=== PATIENT | male | born 1940 | race Caucasian/White ===

== ENCOUNTER 2018-06-05 05:13 | Inpatient (IN) | payer MEDICARE ==
[2018-06-05] MEDS ORDERED: NITROGLYCERIN-D5W PMX 50 MG in DEXTROSE/WATER 1 250ML.BAG IV STA (05:18)
--- NOTE | 2018-06-05 05:27 | ED ---
General Adult HPI - General Stated complaint: Hypertensive Trnsf From [facility] Time Seen by Provider: 06/05/18 05:17 - History of Present Illness Initial comments: Sravan is a 77-year-old male past medical history of hypertension for which she is on medications he cannot recall which. Patient reports that he usually lives in [place] but he has been visiting a friend in this area and has not had any of his medications for approximately week. During the night he became very short of breath and was taken to an outside facility where he is found to be in flash pulmonary edema likely secondary to hypertensive emergency with a blood pressure of 225/126. Patient was treated at the outside hospital with IV nitro infusion, IV Lasix and positive pressure ventilation. Decision was made to transfer the patient to our facility for further evaluation. Upon arrival patient states that he is feeling much better, he only feels short of breath if he tries to lay down, he feels comfortable sitting up. He denies any chest pain or palpitations. - Related Data Allergies Allergy/AdvReac Type Severity Reaction Status Date / Time No Known Allergies Allergy Verified 06/05/18 05:44 Review of Systems ROS Statement: Those systems with pertinent positive or pertinent negative responses have been documented in the HPI. ROS Other: All systems not noted in ROS Statement are negative. Past Medical History Past Medical History: Hypertension General Exam - General Exam Comments Initial Comments: Physical Exam GENERAL: Patient is well-developed and well-nourished. Patient is nontoxic and well- hydrated and is in no distress. HENT: Normocephalic, Atraumatic. EYES: PERRL, EOMI PULMONARY: Unlabored respirations. No audible rales rhonchi or wheezing was noted. CARDIOVASCULAR: There is a regular rate and rhythm without any murmurs gallops or rubs. ABDOMEN: Soft and nontender with normal bowel sounds. SKIN: Skin is clear with no lesions or rashes and otherwise unremarkable. : Deferred NEUROLOGIC: Patient is alert and oriented x3. Moving all extremities spontaneously MUSCULOSKELETAL: Normal extremities with adequate strength and full range of motion. No lower extremity swelling or edema. No calf tenderness. PSYCHIATRIC: Normal psychiatric evaluation. Limitations: no limitations Course Vital Signs 06/05/18 05:21 Temperature 98.1 F Pulse Rate 80 Respiratory 20 Rate Blood Pressure 161/97 O2 Sat by Pulse 99 Oximetry EKG Findings - EKG Comments: EKG Findings:: EKG was obtained at 30 9 AM, rate is 79 rhythm is sinus there is normal axis and normal intervals, IA 148, QRS 12, QTc 410 there are no acute ST elevations or depressions or evidence of acute ischemia or infarction Medical Decision Making - Medical Decision Making care was discussed with the transferring physician Is a 77-year-old male who has been noncompliant with his home oral antihypertensives he presented to the outside facility and flash pulmonary edema, physical exam revealed JVD, crackles in bilateral lungs, oxygen saturation in the high 80s to low 90s, a blood pressure of 225/126 Patient's EKG at that facility revealed trigeminy, his labs did reveal hypomagnesemia and hypokalemia, potassium was replaced orally, magnesium was replaced the IV Patient was appropriately treated for hypertensive emergency with IV nitro, IV Lasix and positive and pressure ventilation. He was transferred to our facility with IV nitro infusing in on CPAP ventilation. At arrival the patient is asymptomatic, blood pressure is improved to 161/77 while on 10 g of nitro, patient oxygen saturation is 98% on 3 L nasal cannula and he is in no respiratory distress Disposition Clinical Impression: Hypertensive emergency, Flash pulmonary edema, Hypoxia, Hypomagnesemia, Hypokalemia Disposition: ADMITTED IP TO THIS HOSP Condition: Stable Is patient prescribed a controlled substance at d/c from ED?: No Referrals: None,Stated [Primary Care Provider] - 1-2 days
[2018-06-05 06:13] LABS: ALT 14 U/L (21-72); AST 18 U/L (17-59); Alkaline Phosphatase 61 U/L (38-126); Anion Gap 9 mmol/L; Blood Urea Nitrogen 13 mg/dL (9-20); Calcium 9.5 mg/dL (8.4-10.2); Carbon Dioxide 28 mmol/L (22-30); Chloride 105 mmol/L (98-107); Glucose 115 mg/dL (74-99); Magnesium 2.1 mg/dL (1.6-2.3); Potassium 4.2 mmol/L (3.5-5.1); Sodium 142 mmol/L (137-145); Total Bilirubin 0.8 mg/dL (0.2-1.3); Total Protein 6.6 g/dL (6.3-8.2)
[2018-06-05 06:17] LABS: Prothrombin Time 11.1 sec (9.0-12.0)
[2018-06-05 06:18] LABS: Basophils # (A) 0.1 k/uL (0-0.2); Basophils % (A) 1 %; Eosinophils # (A) 0.4 k/uL (0-0.7); Eosinophils % (A) 3 %; HCT 43.6 % (39.0-53.0); HGB 14.3 gm/dL (13.0-17.5); Lymphocytes # (A) 1.5 k/uL (1.0-4.8); Lymphocytes % (A) 14 %; MCH 29.5 pg (25.0-35.0); MCHC 32.8 g/dL (31.0-37.0); Mean Platelet Volume 7.6; Monocytes # (A) 0.6 k/uL (0-1.0); Monocytes % (A) 5 %; Neutrophils # (A) 7.9 k/uL (1.3-7.7); Neutrophils % (A) 75 %; Platelet Count 230 k/uL (150-450); RBC 4.84 m/uL (4.30-5.90); RDW 14.7 % (11.5-15.5); WBC 10.5 k/uL (3.8-10.6)
--- NOTE | 2018-06-05 06:38 | P.HPIM ---
History of Present Illness H&P Date: 06/05/18 Chief Complaint: SOA/ elevated BP transferred from [facility] The patient is a 77-year-old male past medical history of hypertension, ovg-nxaapcb-ptkakjwjd dependent diabetes, hyperlipidemia and osteoarthritis who was transferred here from [facility] earlier this morning after he presented there complaining of progressive shortness of breath over the last week. P carla reports that he usually lives in [place] but he has been visiting a friend in this area and has not had any of his medications for approximately week. During the night he became increasingly short of breath and was unable to lay flat he also complained of moderate nonradiating chest pressure feeling like 100 pounds in observation chest, blood pressure check at home was 182/121 after which she presented to an outside facility. Workup at [facility] included a chest x-ray that was consistent with mild cardiomegaly bilateral interstitial edema consistent with pulmonary edema and congestion. His proBNP was elevated at 3668, troponin was less than 0.03, magnesium was 1.2. potassium was 3.4. EKG showed sinus tachycardia without any suggestion of acute ischemia. the patient was found to be in flash pulmonary edema likely secondary to hypertensive emergency with a blood pressure of 225/126. Patient was treated at [facility] with IV nitro infusion, IV Lasix and positive pressure ventilation. Decision was made to transfer the patient to our facility for further evaluation. Upon arrival patient states that he is feeling much better, he only feels short of breath if he tries to lay down, he feels comfortable sitting up. He currently denies any chest pain or palpitations, he denies cough, subjective fevers chills or night sweats, denies lower extremity swelling. The patient is unable to recall most of his medications, denies any history of heart failure but reports that he has been on Lasix and losartan. He was recommended for admission for flash pulmonary edema and hypertensive emergency. Review of Systems Pertinent positives per HPI all other review of systems otherwise negative Past Medical History Past Medical History: Hypertension Medications and Allergies Allergies Allergy/AdvReac Type Severity Reaction Status Date / Time No Known Allergies Allergy Verified 06/05/18 05:44 Physical Exam Vitals: Vital Signs Temp Pulse Resp BP Pulse Ox 06/05/18 05:21 98.1 F 80 20 161/97 99 Intake and Output 06/04/18 06/04/18 06/05/18 14:59 22:59 06:59 Other: Weight 58.967 kg Constitutional: No acute distress, conversant, pleasant Eyes: Anicteric sclerae, moist conjunctiva, no lid-lag, PERRLA ENMT: NC/AT,Oropharynx clear, no erythema, exudates Neck:Supple, FROM, no masses, or JVD, No carotid bruits; No thyromegaly Lungs: Diminished with some bibasilar crackles, , Normal respiratory effort, no accessory muscle use currently on 4 L nasal cannula Cardiovascular: Regular rate and rhythm, No murmurs, gallops, or rubs no peripheral edema< positive JVD Abdominal: Soft Nontender, nom distended, no guarding, no rebound or rigidity, Normoactive bowel sounds No hepatomegaly, No splenomegaly, No palpable mass No abdominal wall hernia noted Skin: Normal temperature, tone, texture, turgor, No induration No subcutaneous nodules, No rash, lesions, No ulcers Extremities:No digital cyanosis No clubbing, Pedal pulses intact and symmetrical Radial pulses intact and symmetrical Normal gait and station, No calf tenderness Psychiatric: Alert and oriented to person, place and time, Appropriate affect Intact judgement Neuro: Muscles Strength 5/5 in all 4 extremities, Sensation to light touch grossly present throughout, Cranial nerves II-XII grossly intact. No focal sensory deficits Results CBC & Chem 7: 06/05/18 05:30 06/05/18 05:30 Assessment and Plan (1) Acute exacerbation of congestive heart failure Current Visit: Yes Status: Acute Code(s): I50.9 - HEART FAILURE, UNSPECIFIED SNOMED Code(s): 04563644 (2) Hypertensive emergency Current Visit: Yes Status: Acute Code(s): I16.1 - HYPERTENSIVE EMERGENCY SNOMED Code(s): 865155487348254 (3) Flash pulmonary edema Current Visit: Yes Status: Acute Code(s): J81.0 - ACUTE PULMONARY EDEMA SNOMED Code(s): 621792410 (4) Type 2 diabetes mellitus Current Visit: Yes Status: Acute Code(s): E11.9 - TYPE 2 DIABETES MELLITUS WITHOUT COMPLICATIONS SNOMED Code(s): 01755567 (5) Hyperlipidemia Current Visit: Yes Status: Acute Code(s): E78.5 - HYPERLIPIDEMIA, UNSPECIFIED SNOMED Code(s): 81502402 (6) Hypokalemia Current Visit: Yes Status: Acute Code(s): E87.6 - HYPOKALEMIA SNOMED Code (s): 48590914 (7) Hypomagnesemia Current Visit: Yes Status: Acute Code(s): E83.42 - HYPOMAGNESEMIA SNOMED Code(s): 379056953 Plan: The patient is admitted to the telemetry unit after being transferred from [facility], I anticipate a greater than 2 midnight stay as the patient is here with flash pulmonary edema, hypertensive emergency, likely acute CHF exacerbation. The patient was transferred here currently on nitro drip, her blood pressure still elevated, we'll continue Lasix 40 mg IV twice a day, restart losartan 50 mg by mouth daily, along with hydralazine, will plan to obtain a 2-D echocardiogram and consult cardiology for further recommendations. We will recheck x-ray, morning labs, recommended low-sodium diet and strict I's and O's with daily weights. Continue with supplemental oxygen and wean as tolerated. The patient is unable to recall his medications, will have nursing contact [facility] when they opened later today. We'll continue to follow clinical course CODE STATUS: Full code Discussed plan of care with patient and his partner Sophia Anticipated discharge 1-2 days Prophylaxis : SCDs heparin
[2018-06-05] MEDS ORDERED: hydrALAZINE HCL 25 MG TAB PO SCH (08:00)
--- NOTE | 2018-06-05 08:18 | XR ---
EXAMINATION TYPE: XR chest 2V DATE OF EXAM: 06/05/2018 COMPARISON: NONE HISTORY: Pulmonary edema, congestive heart failure TECHNIQUE: Frontal and lateral views of the chest are obtained. FINDINGS: Blunting of the left costophrenic angle is noted. There is no pneumothorax. Interstitium i s increased. Heart size is within normal limits. There are overlying cardiac leads. IMPRESSION: Left pleural effusion and associated atelectasis, there may be interstitial edema. Corre late to exclude pneumonia. Follow-up recommended.
[2018-06-05] MEDS ORDERED: LISINOPRIL 10 MG TAB PO SCH (09:00)
[2018-06-05] MEDS ORDERED: METOPROLOL TARTRATE 25 MG TAB PO SCH (09:00)
[2018-06-05] MEDS ORDERED: LOSARTAN 50 MG TAB PO SCH (09:00)
--- NOTE | 2018-06-05 09:22 | P.CRDCN ---
History of Present Illness Consult date: 06/05/18 Requesting physician: Tex Villanueva Consult reason: congestive heart failure Chief complaint: Shortness of breath History of present illness: This is a 77-year-old gentleman with history of diabetes, hypertension, hyperlipidemia, osteoarthritis, who lives in [facility], and was up visiting with a friend in the [facility] area. He states that he's been getting progressively more and more shortness of breath. According to the patient, any time he would try to lay flat he felt like there was 100 pound weight on his chest and he couldn't breathe. This has been going on for over a month in duration. Ultimately the patient presented to [facility], his blood pressure on presentation there was noted to be significantly elevated. According to the patient he does state that he likely missed taking his a blood pressure pills for approximately one week also. Blood pressure on arrival to [facility] was to 25/126, heart rate in the 60s, 90% O2 sat on room air he was given a dose of Lasix 20 mg IV push as well as a sublingual nitroglycerin, initiated on a nitroglycerin drip and transferred here to [facility]. His EKG which was performed at [facility] showed sinus tachycardia with occasional PVC. White blood cell count 11.7 hemoglobin 15.5, platelet count 243. Sodium 143, potassium 3.4, chloride 104, CO2 27, magnesium 1.2 and troponin 0.03. BNP level 3668. Chest x-ray performed on arrival here showed a left lateral effusion with associated atelectasis, interstitial edema. I pressure on arrival here 160/90 with a heart rate in the 80s, 99% on 4 L of oxygen. White blood cell count 10.5, hemoglobin 14.3, platelet count 2:30. Sod ium 142, potassium 4.2, BUN 13 and creatinine 0.8 magnesium 2.1. BNP level 4150 with a negative troponin. At the time of my examination this morning, patient feels well, still mildly short of breath but significantly improved from admission here. 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 History of Any Multi-Drug Resistant Organisms: None Reported Past Surgical History: Back Surgery Past Anesthesia/Blood Transfusion Reactions: No Reported Reaction Past Psychological History: No Psychological Hx Reported Smoking Status: Never smoker Past Alcohol Use History: None Reported Past Drug Use History: None Reported - Past Family History Father History Unknown: Yes Mother History Unknown: Yes Medications and Allergies Home Medications Medication Instructions Recorded Confirmed Type Atorvastatin [Lipitor] 10 mg PO HS 06/05/18 06/05/18 History Glimepiride [Amaryl] 4 mg PO BID 06/05/18 06/05/18 History Losartan Potassium 50 mg PO DAILY 06/05/18 06/05/18 History Meloxicam [Mobic] 7.5 mg PO BID 06/05/18 06/05/18 History cloNIDine HCL [Catapres] 0.2 mg PO DAILY 06/05/18 06/05/18 History metFORMIN HCL 1,000 mg PO BID 06/05/18 06/05/18 History Allergies Allergy/AdvReac Type Severity Reaction Status Date / Time No Known Allergies Allergy Verified 06/05/18 09:57 Physical Exam Vitals: Vital Signs Temp Pulse Pulse Resp BP BP Pulse Ox 06/05/18 07:40 98.2 F 89 16 161/97 99 06/05/18 07:20 98.2 F 80 18 178/92 06/05/18 06:28 82 20 170/88 96 06/05/18 06:00 88 20 164/90 96 06/05/18 05:21 98.1 F 80 20 161/97 99 Intake and Output 06/04/18 06/05/18 06/05/18 22:59 06:59 14:59 Output Total 350 Balance -350 Output: Urine 350 Other: Weight 58.967 kg 58.9 kg PHYSICAL EXAMINATION: GENERAL: 77-year-old gentleman in no acute distress at the time of my examination HEENT: Head is atraumatic, normocephalic. Pupils equal, round. Sclera anicteric. Conjunctiva are clear. Mucous membranes of the mouth are moist. Neck is supple. There is elevated jugular venous pressure. No carotid bruit is heard. HEART EXAMINATION: Heart S1, S2 normal. No murmur or gallop heard. CHEST EXAMINATION: Lungs reveal diminished air entry bilaterally, left greater than the right. ABDOMEN: Soft, nontender. Bowel sounds are heard. No organomegaly noted. EXTREMITIES: 2+ peripheral pulses with no evidence of peripheral edema and no calf tenderness noted. NEUROLOGIC patient is awake, alert and oriented 3 . . Results 06/05/18 05:30 06/05/18 05:30 Cardiac Enzymes 06/05/18 06/05/18 Range/Units 05:30 05:30 AST 18 (17-59) U/L Troponin I <0.012 (0.000-0.034) ng/mL Coagulation 06/05/18 Range/Units 05:30 PT 11.1 (9.0-12.0) sec APTT 25.0 (22.0-30.0) sec CBC 06/05/18 Range/Units 05:30 WBC 10.5 (3.8-10.6) k/uL RBC 4.84 (4.30-5.90) m/uL Hgb 14.3 (13.0-17.5) gm/dL Hct 43.6 (39.0-53.0) % Plt Count 230 (150-450) k/uL Comprehensive Metabolic Panel 06/05/18 Range/Units 05:30 Sodium 142 (137-145) mmol/L Potassium 4.2 (3.5-5.1) mmol/L Chloride 105 (98-107) mmol/L Carbon Dioxide 28 (22-30) mmol/L BUN 13 (9-20) mg/dL Creatinine 0.81 (0.66-1.25) mg/dL Glucose 115 H (74-99) mg/dL Calcium 9.5 (8.4-10.2) mg/dL AST 18 (17-59) U/L ALT 14 L (21-72) U/L Alkaline Phosphatase 61 (38-126) U/L Total Protein 6.6 (6.3-8.2) g/dL Albumin 4.0 (3.5-5.0) g/dL Current Medications Generic Name Dose Route Start Last Admin Trade Name Freq PRN Reason Stop Dose Admin Furosemide 40 mg 06/05/18 06:00 Lasix IV Q12H KEO Heparin Sodium (Porcine) 5,000 unit 06/05/18 09:00 Heparin SQ Q12HR KEO Hydralazine HCl 25 mg 06/05/18 08:00 Apresoline PO Q8HR [facility] Losartan Potassium 50 mg 06/05/18 09:00 Cozaar PO DAILY KEO Metoprolol Tartrate 25 mg 06/05/18 09:00 Lopressor PO BID KEO Intake and Output 06/04/18 06/05/18 06/05/18 22:59 06:59 14:59 Output Total 350 Balance -350 Output: Urine 350 Other: Weight 58.967 kg 58.9 kg Patient Weight 06/06/18 06:59 Weight 58.9 kg 06/05/18 05:30 06/05/18 05:30 EKG Interpretations (text) EKG shows a normal sinus rhythm with frequent PVCs, no acute changes noted Assessment and Plan Plan: Assessment and plan #1 congestive heart failure exacerbation, LV function unknown #2 hypertensive urgency #3 diabetes #4 hyperlipidemia #5 no prior history of smoking Plan We will continue patient on IV Lasix. Obtain echocardiogram with Doppler study. Change losartan to losartan hydrochlorothiazide increasing the dose to 100/12.5 daily. Increase hydralazine to 50 3 times a day. Increase dose of beta kelly. DNP note has been reviewed, I agree with a documented findings and plan of care. Patient was seen and examined.
[2018-06-05] MEDS: FUROSEMIDE 10 MG/ML 4 ML VIAL IV SCH ×2 (10:17→16:31)
[2018-06-05] MEDS: HEPARIN SODIUM,PORCINE 5,000 UNIT/ML 1 ML VIAL SQ SCH ×2 (10:35→20:02)
[2018-06-05 11:34] VITALS: BMI 23.0
[2018-06-05 11:35] LABS: Glucose,Whole Blood 162 mg/dL (75-99)
[2018-06-05 12:30] LABS: T4, Free (Free Thyroxine) 1.39 ng/dL (0.78-2.19)
--- NOTE | 2018-06-05 13:37 | ECHOF ---
Referral Reason:Heart Failure MEASUREMENTS -------- HEIGHT: 160.0 cm WEIGHT: 59.0 kg BP: 170/88 IVSd: 1.0 cm (0.6 - 1.1) LVIDd: 4.9 cm (3.9 - 5.3) LVPWd: 1.2 cm (0.6 - 1.1) IVSs: 1.4 cm LVIDs: 4.1 cm LVPWs: 1.3 cm LAESV Index (A-L): 30.98 ml/m Ao Diam: 3.6 cm (2.0 - 3.7) AV Cusp: 2.1 cm (1.5 - 2.6) LA Diam: 4.1 cm (2.7 - 3.8) MV EXCURSION: 15.965 mm (> 18.000) MV EF SLOPE: 61 mm/s (70 - 150) EPSS: 1.0 cm MV E Catalino: 0.95 m/s MV DecT: 187 ms MV A Catalino: 0.57 m/s MV E/A Ratio: 1.67 RAP: 5.00 mmHg RVSP: 9.20 mmHg FINDINGS -------- Sinus rhythm. This was a technically difficult study with suboptimal views. The left ventricular size is normal. There is borderline concentric left ventricular hypertrophy. There is severe global hypokinesis of LV . Overall left ventricular systolic function is severely impaired with, an EF between 20 - 25 %. The right ventricle is normal in size. LA is midly dilated 29-33ml/m2. The right atrium is normal in size. The aortic valve was not well visualized. The mitral valve leaflets are mildly thickened. Mild mitral regurgitation is present. Mild tricuspid regurgitation present. The right ventricular systolic pressure, as measured by Doppl er, is 9.20mmHg. Pulmonic valve appears structurally normal. The aortic root size is normal. IVC Not well visulized. The pericardium is normal. CONCLUSIONS -------- 1. Sinus rhythm. 2. This was a technically difficult study with suboptimal views. 3. The left ventricular size is normal. 4. There is borderline concentric left ventricular hypertrophy. 5. There is severe global hypokinesis of LV . 6. Overall left ventricular systolic function is severely impaired with, an EF between 20 - 25 %. 7. The right ventricle is normal in size. 8. LA is midly dilated 29-33ml/m2. 9. The right atrium is normal in size. 10. The aortic valve was not well visualized. 11. The mitral valve leaflets are mildly thickened. 12. Mild mitral regurgitation is present. 13. Mild tricuspid regurgitation present. 14. The right ventricular systolic pressure, as measured by Doppler, is 9.20mmHg. 15. Pulmonic valve appears structurally normal. 16. The aortic root size is normal. 17. IVC Not well visulized. 18. The pericardium is normal. SENIOR EXECUTIVE ASSISTANT: Rocio Stroud RDCS
--- NOTE | 2018-06-05 13:53 | P.PN ---
Progress Note - Text Progress Note Date: 06/05/18 Please refer to the H&P for full documentation. Is a 77-year-old male with PMH of hypertension, diabetes mellitus, hyperlipidemia and osteoarthritis who was transferred from [facility] for shortness of breath has been ongoing for the past week. He reports medication noncompliance over the past week. When he came to the ED, he was found to have hypertensive emergency with a SBP greater than 200 and DBP greater than 100s. Patient was admitted for flash pulmonary edema and hypertensive emergency with cardiology on consult. Patient was seen and examined. No acute events overnight. Patient reports great improvement in his breathing since admission. He is requesting to be discharged. He denies any chest pain, shortness of breath or palpitations. Tolerating his diet well. No nausea or vomiting. No fever or chills. Echocardiogram shows EF between 20 and 25%. He was seen by cardiology who recommended to continue his home medications and continue IV Lasix for diuresis. His heart is regular rate and rhythm. Normal S1-S2. No murmurs rubs or gallops. Lungs show decreased breath sounds bilaterally with no rales or rhonchi. There is no lower extremity edema. We will continue the patient on Lasix 40 mg IV twice a day. Continue HUAN inhibitor and beta kelly. Telemetry monitoring. Ins and outs. Daily weights. We will follow additional cardiology recommendations. Patient is pending clinical improvement. Likely discharge in 1-2 days.
[2018-06-05 16:23] LABS: Glucose,Whole Blood 132 mg/dL (75-99)
[2018-06-05] MEDS: LOSARTAN-HCTZ 50-12.5 MG 1 EACH TAB PO SCH (16:30)
[2018-06-05] MEDS: hydrALAZINE HCL 50 MG TAB PO SCH ×2 (16:31→23:15)
[2018-06-05] MEDS: METOPROLOL TARTRATE 50 MG TAB PO SCH (20:02)
[2018-06-05 20:39] LABS: Glucose,Whole Blood 145 mg/dL (75-99)
[2018-06-06] MEDS: FUROSEMIDE 10 MG/ML 4 ML VIAL IV SCH (05:50)
[2018-06-06 05:58] LABS: Glucose,Whole Blood 133 mg/dL (75-99)
[2018-06-06 07:07] LABS: Basophils # (A) 0.1 k/uL (0-0.2); Basophils % (A) 1 %; Eosinophils # (A) 0.4 k/uL (0-0.7); Eosinophils % (A) 4 %; HCT 48.5 % (39.0-53.0); HGB 16.2 gm/dL (13.0-17.5); Lymphocytes # (A) 2.1 k/uL (1.0-4.8); Lymphocytes % (A) 19 %; MCH 29.7 pg (25.0-35.0); MCHC 33.4 g/dL (31.0-37.0); MCV 88.8 fL (80.0-100.0); Mean Platelet Volume 8.2; Monocytes # (A) 0.8 k/uL (0-1.0); Monocytes % (A) 7 %; Neutrophils # (A) 7.9 k/uL (1.3-7.7); Neutrophils % (A) 69 %; Platelet Count 248 k/uL (150-450); RBC 5.46 m/uL (4.30-5.90); RDW 14.4 % (11.5-15.5); WBC 11.5 k/uL (3.8-10.6)
[2018-06-06 07:18] LABS: Calcium 10.1 mg/dL (8.4-10.2); Potassium 3.8 mmol/L (3.5-5.1)
[2018-06-06] MEDS: HEPARIN SODIUM,PORCINE 5,000 UNIT/ML 1 ML VIAL SQ SCH ×2 (09:38→19:47)
[2018-06-06] MEDS: LOSARTAN-HCTZ 50-12.5 MG 1 EACH TAB PO SCH (09:38)
[2018-06-06] MEDS: METOPROLOL TARTRATE 50 MG TAB PO SCH ×2 (09:39→19:47)
[2018-06-06] MEDS: hydrALAZINE HCL 50 MG TAB PO SCH ×3 (09:39→23:03)
--- NOTE | 2018-06-06 10:57 | P.PN ---
Subjective Progress Note Date: 06/06/18 Principal diagnosis: CHF exacerbation Patient was seen and examined. No acute events overnight. Patient reports improvement in his breathing continues to complain of dyspnea especially with laying down. He denies any chest pain or palpitations. No dizziness, nausea or vomiting. No fever or chills. Objective - Vital Signs Vital signs: Vital Signs Temp 98.1 F 06/06/18 07:52 Pulse 94 06/06/18 07:52 Resp 18 06/06/18 07:52 BP 137/87 06/06/18 07:52 Pulse Ox 94 L 06/06/18 07:52 Intake & Output 06/05/18 06/06/18 06/06/18 18:59 06:59 18:59 Intake Total 888 462 Output Total 2024 850 Balance -1137 -850 462 Weight 58.9 kg 56 kg Intake: Oral 888 462 Output: Urine 2024 Other: Voiding Method Urinal Urinal - Exam General: [non toxic], [no distress], [appears at stated age] Derm: [warm], [dry] Head: [atraumatic], [normocephalic], [symmetric] Eyes: [EOMI], [no lid lag], [anicteric sclera] Mouth: [no lip lesion], [mucus membranes moist] Cardiovascular: [S1S2 reg], [no murmur], [positive DP pulse bilateral] Lungs: [decreased breath sounds bilateral], [no rhonchi, no rales] , [no acc essory muscle use] Abdominal: [soft], [ nontender to palpation], [no guarding], [no appreciable organomegaly] Ext: [no gross muscle atrophy], [no edema], [no contractures] Neuro: [no focal neuro deficits] Psych: [Alert], [oriented], [appropriate affect] - Labs CBC & Chem 7: 06/06/18 05:22 06/06/18 05:22 Labs: Abnormal Lab Results - Last 24 Hours (Table) 06/05/18 06/05/18 06/05/18 Range/Units 05:30 11:33 16:21 WBC (3.8-10.6) k/uL Neutrophils # (1.3-7.7) k/uL Carbon Dioxide (22-30) mmol/L Glucose (74-99) mg/dL POC Glucose (mg/dL) 162 H 132 H (75-99) mg/dL TSH 6.570 H (0.465-4.680) mIU/L 06/05/18 06/06/18 06/06/18 Range/Units 20:38 05:22 05:22 WBC 11.5 H (3.8-10.6) k/uL Neutrophils # 7.9 H (1.3-7.7) k/uL Carbon Dioxide 31 H (22-30) mmol/L Glucose 129 H (74-99) mg/dL POC Glucose (mg/dL) 145 H (75-99) mg/dL TSH (0.465-4.680) mIU/L 06/06/18 Range/Units 05:57 WBC (3.8-10.6) k/uL Neutrophils # (1.3-7.7) k/uL Carbon Dioxide (22-30) mmol/L Glucose (74-99) mg/dL POC Glucose (mg/dL) 133 H (75-99) mg/dL TSH (0.465-4.680) mIU/L Assessment and Plan Assessment: Assessment and Plan 1. Acute CHF exacerbation 2. Hypertension 3. Diabetes mellitus 4. Hyperlipidemia 5. Leukocytosis 6. Subclinical hypothyroidism 1. Chest x-ray on admission shows left pleural effusion, interstitial edema. BNP 4150. Echocardiogram shows EF between 20 and 25% with severe global hypokinesis. Transition from Lasix IV to Lasix 40 mg by mouth twice a day. Continue losartan. Continue metoprolol. Continue spironolactone. Strict intake and output. Daily weights. Will follow cardiology recommendations. 2. BP 137/87. Continue hydrochlorothiazide, losartan, hydralazine, metoprolol, spironolactone. Monitor vitals, adjust medications as necessary. 3. [id number] glucose as high as 145. Will hold insulin due to risk of hypoglycemia. 4. Start Lipitor 10 mg by mouth at bedtime. 5. Leukocytosis of 11.5 with neutrophilia. Unknown etiology, no signs of infections. Will continue to monitor. 6. TSH 6.5703 T4 within normal limits. Follow-up with PCP for further workup. Patient transition to Lasix by mouth. Pending evaluation by PT for unsteady gait. Likely discharge in 1-2 days.
[2018-06-06 11:20] LABS: Glucose,Whole Blood 180 mg/dL (75-99)
[2018-06-06] MEDS: SODIUM CHLORIDE 0.9% 1,000 ML IV SCH (11:20)
[2018-06-06] MEDS ORDERED: FUROSEMIDE 40 MG TAB PO SCH (16:00)
[2018-06-06 16:32] LABS: Glucose,Whole Blood 145 mg/dL (75-99)
--- NOTE | 2018-06-06 16:39 | PN ---
PROGRESS NOTE Mr. Morales is a 77-year-old gentleman who lives in the [facility]. He came in with what seemed to be accelerated hypertension and congestive heart failure. Echocardiogram revealed ejection fraction in the range of 20% to 25%. He is quite dizzy and lightheaded today, had significant orthostatic changes when I did them during my evaluation. Blood pressure was 150 lying down systolic and came down to 110 on standing. I will cautiously hydrate him at 75 mL/hour, hold Lasix today and see how he does. Echocardiogram revealed ejection fraction was low. Global decrease in contractility was noted. Apparently patient is aware of this; has not been taking his medications on a regular basis. I will Hep-Lock him, hydrate him cautiously and see how he does. Vital signs are stable and there is evidence of orthostatic changes, as mentioned above. There is no JVD. S1, S2 heard normally. Short systolic murmur noted. Lungs reveal decent air entry. Abdomen and lower extremity exam is unchanged. Plan is to cautiously hydrate him, hold Lasix, add Aldactone and re-evaluate him tomorrow and then make further recommendations. Hopefully we can discharge him in the morning if he remains stable. MMODL / IJN: [id number] /
[2018-06-06] MEDS: ATORVASTATIN 10 MG TAB PO SCH (19:47)
[2018-06-06 21:04] LABS: Glucose,Whole Blood 227 mg/dL (75-99)
[2018-06-07] MEDS: SODIUM CHLORIDE 0.9% 1,000 ML IV SCH (06:08)
[2018-06-07 07:39] VITALS: RESP 18
[2018-06-07] MEDS: METOPROLOL TARTRATE 50 MG TAB PO SCH ×2 (07:41→22:00)
[2018-06-07] MEDS: LOSARTAN-HCTZ 50-12.5 MG 1 EACH TAB PO SCH (07:41)
[2018-06-07] MEDS: SPIRONOLACTONE 25 MG TAB PO SCH (07:41)
[2018-06-07] MEDS: hydrALAZINE HCL 50 MG TAB PO SCH ×3 (07:42→22:00)
[2018-06-07] MEDS: FUROSEMIDE 40 MG TAB PO SCH (07:42)
[2018-06-07] MEDS: HEPARIN SODIUM,PORCINE 5,000 UNIT/ML 1 ML VIAL SQ SCH ×2 (07:42→22:00)
[2018-06-07 09:05] LABS: Calcium 9.8 mg/dL (8.4-10.2); Potassium 3.8 mmol/L (3.5-5.1)
[2018-06-07 09:24] LABS: HCT 46.8 % (39.0-53.0); HGB 15.8 gm/dL (13.0-17.5); MCH 30.4 pg (25.0-35.0); MCHC 33.9 g/dL (31.0-37.0); MCV 89.6 fL (80.0-100.0); Mean Platelet Volume 8.3; Platelet Count 231 k/uL (150-450); RBC 5.22 m/uL (4.30-5.90); RDW 14.3 % (11.5-15.5); WBC 14.1 k/uL (3.8-10.6)
[2018-06-07 12:02] LABS: Glucose,Whole Blood 171 mg/dL (75-99)
--- NOTE | 2018-06-07 14:15 | PN ---
PROGRESS NOTE Mr. Morales was very dehydrated yesterday, so I hydrated him very cautiously. Hydration has been stopped. His orthostatic changes have resolved. I am resuming his medications. He has significantly impaired LV function and accelerated hypertension. Vital signs stable. He is a bit confused and there is also elevated white count. This is being looked at. Vital signs stable. S1-S2 heard normally. Short systolic murmur noted. Lungs revealed decent air entry. Abdomen and lower extremity exam is unchanged. Plan is to continue current medications. Increase activity. BP control has been optimized. 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 MMODL / IJN: [id number] /
[2018-06-07 16:16] LABS: Appearance,Urine Clear (Clear); Bilirubin,Urine Negative (Negative); Blood,Urine Negative (Negative); Color,Urine Light Yellow; Glucose,Urine (UA) Negative (Negative); Ketones,Urine Negative (Negative); Leukocyte Esterase,Urine Negative (Negative); Nitrite,Urine Negative (Negative); Protein,Urine Trace (Negative); Specific Gravity,Urine 1.009 (1.001-1.035); Urobilinogen,Urine <2.0 mg/dL (<2.0)
[2018-06-07 16:26] LABS: Glucose,Whole Blood 204 mg/dL (75-99)
--- NOTE | 2018-06-07 16:40 | P.PN ---
Subjective Progress Note Date: 06/07/18 (delayed charting seen at 1000) Principal diagnosis: Chest pain Patient is a 77-year-old male past medical history of hypertension, oxb-ffbqdgv-jyrzxrdyn diabetes, dyslipidemia, congestive heart failure, and osteoarthritis was sent here as a transfer from [facility] secondary to acute exacerbation of congestive heart failure with pulmonary edema. At [facility] he underwent an extensive evaluation. He had initially been complaining of some chest pressure and his blood pressure was 225/126. His found to have an elevated BNP at 3668, troponin was negative, magnesium was 1.2, potassium 3.4. EKG did not show any signs of acute ischemia. Chest x-ray showed flash pulmonary edema. He was started on IV nitro, given a dose of Lasix, and started on BiPAP. He was therefore transferred to our facility. He was seen by cardiology and underwent echocardiogram which showed an ejection fraction of 40-45%. His losartan hydrochlorothiazide dosing was increased and hydralazine was added by cardiology. On the morning of 06/07 he developed mental status changes. Urinalysis negative. Patient seen and examined at bedside. He complains of feeling confused and foggy. He is able to follow directions. He states he is unable to talk and re peat pending. He denies any chest pain, shortness of breath, nausea, or vomiting. Objective - Vital Signs Vital signs: Vital Signs Temp 98.4 F 06/07/18 11:39 Pulse 86 06/07/18 11:39 Resp 18 06/07/18 11:39 BP 156/96 06/07/18 11:39 Pulse Ox 96 06/07/18 11:39 Intake & Output 06/06/18 06/07/18 06/07/18 18:59 06:59 18:59 Intake Total 942 236 Output Total 450 200 Balance 942 -450 36 Weight 55.5 kg 56.2 kg Intake: Oral 942 236 Output: Urine 450 200 Other: Voiding Method Urinal Urinal Diaper Diaper # Voids 3 2 1 - Exam General: Chronically ill-appearing, no distress, appears at stated age Derm: warm, dry Head: atraumatic, normocephalic, symmetric Eyes: EOMI, no lid lag, anicteric sclera Mouth: no lip lesion, mucus membranes moist Cardiovascular: S1S2 reg, no murmur, positive posterior tibial pulse bilateral, Lungs: Decreased breath sounds bilateral bases, no rhonchi, no rales , no accessory muscle use Abdominal: soft, nontender to palpation, no guarding, no appreciable organomegaly Ext: no gross muscle atrophy, no edema, no contractures Neuro: CN II-XI grossly intact, no focal neuro deficits Psych: Alert to self and the hospital. Slow thinking. Difficulty answering some questions but not others. - Labs CBC & Chem 7: 06/07/18 08:24 06/07/18 08:24 Labs: Abnormal Lab Results - Last 24 Hours (Table) 06/06/18 06/06/18 06/07/18 Range/Units 16:28 21:02 08:24 WBC 14.1 H (3.8-10.6) k/uL Carbon Dioxide (22-30) mmol/L BUN (9-20) mg/dL Glucose (74-99) mg/dL POC Glucose (mg/dL) 145 H 227 H (75-99) mg/dL Urine Protein (Negative) 06/07/18 06/07/18 06/07/18 Range/Units 08:24 11:49 14:00 WBC (3.8-10.6) k/uL Carbon Dioxide 31 H (22-30) mmol/L BUN 21 H (9-20) mg/dL Glucose 156 H (74-99) mg/dL POC Glucose (mg/dL) 171 H (75-99) mg/dL Urine Protein Trace H (Negative) 06/07/18 Range/Units 16:24 WBC (3.8-10.6) k/uL Carbon Dioxide (22-30) mmol/L BUN (9-20) mg/dL Glucose (74-99) mg/dL POC Glucose (mg/dL) 204 H (75-99) mg/dL Urine Protein (Negative) Assessment and Plan Assessment: Toxic metabolic encephalopathy -Urinalysis negative -Likely secondary to hospital-induced delirium, could he secondary to rapid changes in blood pressure -No focal neuro deficits -Supportive care Hypertensive urgency, improved -Do not attempt to lower her blood pressure any further this point in time secondary confusion -Continue with hydrochlorothiazide, Cozaar, metoprolol, lasix, aldactone, and hydralazine -Follow blood pressures -Cardiology recommendations Orthostatic hypotension -Status post IV fluid hydration -Recheck orthostatics -Consider decreasing hydralazine continues to be orthostatic. Acute exacerbation of systolic congestive heart failure with ejection fraction 40-45% -Lasix restarted by cardio -Continue with beta kelly, ARB, and hydrochlorothiazide, aldactone - cardio recs Diabetes mellitus type 2 -Hold metformin and Amaryl -Check A1c -Sliding-scale insulin, follow blood sugars Dyslipidemia -Statin therapy DVT prophylaxis:Heparin Discussed with: Patient, nursing Anticipated discharge: 24-48 hours if mentation improved Anticipated discharge place: home vs SNF A total of 40 minutes was spent on the care of this complex patient more than 50% of the time was spent in counseling and care coordination.
--- NOTE | 2018-06-07 17:12 | XR ---
EXAMINATION TYPE: XR chest 1V portable DATE OF EXAM: 06/07/2018 Comparison: 06/05/2018 Clinical History: 77-year-old male shortness of breath Findings: The heart is normal size. Aorta and pulmonary vasculature within normal limits. No consolidation air. There is trace blunting of the left lateral costophrenic angle that could represent a trace effusion . Impression: Possible trace left pleural effusion, decreased from prior. No other acute process seen.
[2018-06-07 20:37] LABS: Glucose,Whole Blood 142 mg/dL (75-99)
[2018-06-07] MEDS: ATORVASTATIN 10 MG TAB PO SCH (22:00)
[2018-06-08 04:33] VITALS: TEMP 98.1
[2018-06-08 06:16] LABS: Glucose,Whole Blood 138 mg/dL (75-99)
[2018-06-08 07:08] LABS: HCT 48.5 % (39.0-53.0); HGB 15.8 gm/dL (13.0-17.5); MCH 29.3 pg (25.0-35.0); MCHC 32.6 g/dL (31.0-37.0); MCV 89.8 fL (80.0-100.0); Mean Platelet Volume 8.3; Platelet Count 253 k/uL (150-450); RDW 14.4 % (11.5-15.5); WBC 12.7 k/uL (3.8-10.6)
[2018-06-08 07:24] LABS: Calcium 10.3 mg/dL (8.4-10.2); Magnesium 1.7 mg/dL (1.6-2.3); Potassium 4.4 mmol/L (3.5-5.1)
[2018-06-08] MEDS: LOSARTAN-HCTZ 50-12.5 MG 1 EACH TAB PO SCH (09:21)
[2018-06-08] MEDS: METOPROLOL TARTRATE 50 MG TAB PO SCH (09:22)
[2018-06-08] MEDS: FUROSEMIDE 40 MG TAB PO SCH (09:22)
[2018-06-08] MEDS: HEPARIN SODIUM,PORCINE 5,000 UNIT/ML 1 ML VIAL SQ SCH (09:22)
[2018-06-08] MEDS: hydrALAZINE HCL 50 MG TAB PO SCH (09:22)
[2018-06-08] MEDS: SPIRONOLACTONE 25 MG TAB PO SCH (09:22)
[2018-06-08 11:31] LABS: Glucose,Whole Blood 207 mg/dL (75-99)
[2018-06-08 12:41] LABS: Hemoglobin A1C 5.9 % (4.0-6.0)
[2018-06-08 13:11] VITALS: BP 144/81; PULSE 69
--- NOTE | 2018-06-08 14:04 | P.PN ---
Subjective Progress Note Date: 06/08/18 This is a 77-year-old gentleman with history of diabetes, hypertension, hyperlipidemia, osteoarthritis, who lives in [facility], and was up visiting with a friend in the [facility] area. He states that he's been getting progressively more and more shortness of breath. According to the patient, any time he would try to lay flat he felt like there was 100 pound weight on his chest and he couldn't breathe. This has been going on for over a month in duration. Ultimately the patient presented to [facility], his blood pressure on presentation there was noted to be sign ificantly elevated. According to the patient he does state that he likely missed taking his a blood pressure pills for approximately one week also. Blood pressure on arrival to [facility] was to 25/126, heart rate in the 60s, 90% O2 sat on room air he was given a dose of Lasix 20 mg IV push as well as a sublingual nitroglycerin, initiated on a nitroglycerin drip and transferred here to [facility]. His EKG which was performed at [facility] showed sinus tachycardia with occasional PVC. White blood cell count 11.7 hemoglobin 15.5, platelet count 243. Sodium 143, potassium 3.4, chloride 104, CO2 27, magnesium 1.2 and troponin 0.03. BNP level 3668. Chest x-ray performed on arrival here showed a left lateral effusion with associated atelectasis, interstitial edema. I pressure on arrival here 160/90 with a heart rate in the 80s, 99% on 4 L of oxygen. White blood cell count 10.5, hemoglobin 14.3, platelet count 2:30. Sodium 142, potassium 4.2, BUN 13 and creatinine 0.8 magnesium 2.1. BNP level 4150 with a negative troponin. At the time of my examination this morning, patient feels well, still mildly short of breath but significantly improved from admission here. 06/08/2018 Patient seen and examined this morning, feeling well, blood pressure 122/60. Anticipating discharge home today. Objective - Vital Signs Vital signs: Vital Signs Temp 98.1 F 06/08/18 08:00 Pulse 69 06/08/18 12:00 Resp 18 06/08/18 12:00 BP 144/81 06/08/18 12:00 Pulse Ox 97 06/08/18 12:00 Intake & Output 06/07/18 06/08/18 06/08/18 18:59 06:59 18:59 Intake Total 596 240 Output Total 200 500 150 Balance 396 -500 90 Weight 56.2 kg 55.2 kg Intake: Oral 596 240 Output: Urine 200 500 150 Other: Voiding Method Urinal Urinal Urinal Diaper Diaper # Voids 1 1 1 - Exam PHYSICAL EXAMINATION: GENERAL: 77-year-old gentleman in no acute distress at the time of my examination HEENT: Head is atraumatic, normocephalic. Pupils equal, round. Sclera anicteric. Conjunctiva are clear. Mucous membranes of the mouth are moist. Neck is supple. There is elevated jugular venous pressure. No carotid bruit is heard. HEART EXAMINATION: Heart S1, S2 normal. No murmur or gallop heard. CHEST EXAMINATION: Lungs reveal diminished air entry bilaterally, left greater than the right. ABDOMEN: Soft, nontender. Bowel sounds are heard. No organomegaly noted. EXTREMITIES: 2+ peripheral pulses with no evidence of peripheral edema and no calf tenderness noted. NEUROLOGIC patient is awake, alert and oriented 3 . - Labs CBC & Chem 7: 06/08/18 06:12 06/08/18 06:12 Labs: Abnormal Lab Results - Last 24 Hours (Table) 06/07/18 06/07/18 06/07/18 Range/Units 14:00 16:24 20:33 WBC (3.8-10.6) k/uL Carbon Dioxide (22-30) mmol/L BUN (9-20) mg/dL Glucose (74-99) mg/dL POC Glucose (mg/dL) 204 H 142 H (75-99) mg/dL Calcium (8.4-10.2) mg/dL Urine Protein Trace H (Negative) 06/08/18 06/08/18 06/08/18 Range/Units 06:12 06:12 06:13 WBC 12.7 H (3.8-10.6) k/uL Carbon Dioxide 32 H (22-30) mmol/L BUN 23 H (9-20) mg/dL Glucose 138 H (74-99) mg/dL POC Glucose (mg/dL) 138 H (75-99) mg/dL Calcium 10.3 H (8.4-10.2) mg/dL Urine Protein (Negative) 06/08/18 Range/Units 11:23 WBC (3.8-10.6) k/uL Carbon Dioxide (22-30) mmol/L BUN (9-20) mg/dL Glucose (74-99) mg/dL POC Glucose (mg/dL) 207 H (75-99) mg/dL Calcium (8.4-10.2) mg/dL Urine Protein (Negative) Assessment and Plan Plan: Assessment and plan #1 congestive heart failure exacerbation, LV function unknown #2 hypertensive urgency #3 diabetes #4 hyperlipidemia #5 no prior history of smoking Plan from cardiology's perspective, patient may be able to be discharged home today. 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 DNP note has been reviewed, I agree with a documented findings and plan of care. Patient was seen and examined.
--- NOTE | 2018-06-08 19:59 | P.DS ---
Providers Date of admission: 06/05/18 05:45 Expected date of discharge: 06/08/18 Attending physician: Tex Villanueva MD Consults: 06/05/18 05:48 Consult Physician Routine Consulting Provider: Gagan Bonilla Consult Reason/Comments: CHF/pulmonary edema Do you want consulting provider notified?: Yes Primary care physician: Stated None Hospital Course: Discharge Diagnosis: Acute exacerbation of systolic congestive heart failure with ejection fraction 20-25% Hypertensive urgency Toxic metabolic encephalopathy Diabetes mellitus type 2 Dyslipidemia Orthostatic hypotension Hospital Course: Patient is a 77-year-old male past medical history of hypertension, iie-cnrzgih-navrwgkls diabetes, dyslipidemia, congestive heart failure, and osteoarthritis was sent here as a transfer from [facility] secondary to acute exacerbation of congestive heart failure with pulmonary edema. At [facility] he underwent an extensive evaluation. He had initially been complaining of some chest pressure and his blood pressure was 225/126. His found to have an elevated BNP at 3668, troponin was negative, magnesium was 1.2, potassium 3.4. EKG did not show any signs of acute ischemia. Chest x-ray showed flash pulmonary edema. He was started on IV nitro, given a dose of Lasix, and started on BiPAP. He was therefore transferred to our facility. He was seen by cardiology and underwent echocardiogram which showed an ejection fraction of 20-25%. His losartan hydrochlorothiazide dosing was increased and hydralazine was added by cardiology. His troponin was negative. He did develop some dehydration and orthostatic hypotension which corrected with IV fluids and medication adjustment. On the morning of 06/07 he developed mental status changes. Urinalysis negative. His mentation had greatly imrpoved on the morning of 06/08. His heart failure was compensated and he was determined stable for discharge. 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 He is unsure of his studio operator name. His amaryl was stopeed on discharge as A1C was 5.9. He was started on HCTZ, metoprolol and aldactone. His losartan was increased. He will have a BMP in 3 days to screen for hyperkalemia and dehydration. He will follow with Dr. Hernandez on 06/12 at 0930 Patient seen and examined at bedside. No chest pain, SOB, nausea or vomiting. Feeling well and wants to go home. Vital signs reviewed and stable. General: non toxic, no distress, appears at stated age Derm: warm, dry Head: atraumatic, normocephalic, symmetric, [place] Eyes: EOMI, no lid lag, anicteric sclera Mouth: no lip lesion, mucus membranes moist Cardiovascular: S1S2 reg, no murmur, positive posterior tibial pulse bilateral, Lungs: CTA bilateral, no rhonchi, no rales , no accessory muscle use Abdominal: soft, nontender to palpation, no guarding, no appreciable organomegaly Ext: no gross muscle atrophy, no edema, no contractures Neuro: CN II-XI grossly intact, no focal neuro deficits Psych: Alert, oriented, appropriate affect A total of 35 minutes of time were spent preparing this complex discharge summary . Pertinent Studies: Echo-ejection fraction 20-25% Chest [id number] showed left pleural effusion, however improved on repeat Patient Condition at Discharge: Stable Plan - Discharge Summary Discharge Rx Participant: No New Discharge Prescriptions: New Spironolactone [Aldactone] 25 mg PO DAILY #15 tab Metoprolol Tartrate [Lopressor] 50 mg PO BID #60 tab Losartan/Hydrochlorothiazide [Losartan-Hctz 100-25 mg Tab] 1 each PO DAILY #30 tablet Continue Meloxicam [Mobic] 7.5 mg PO BID Atorvastatin [Lipitor] 10 mg PO HS #30 tab metFORMIN HCL 1,000 mg PO BID #60 tablet Discontinued cloNIDine HCL [Catapres] 0.2 mg PO DAILY Glimepiride [Amaryl] 4 mg PO BID Losartan Potassium 50 mg PO DAILY Discharge Medication List Meloxicam [Mobic] 7.5 mg PO BID 06/05/18 [History] Atorvastatin [Lipitor] 10 mg PO HS #30 tab 06/08/18 [Rx] Losartan/Hydrochlorothiazide [Losartan-Hctz 100-25 mg Tab] 1 each PO DAILY #30 tablet 06/08/18 [Rx] Metoprolol Tartrate [Lopressor] 50 mg PO BID #60 tab 06/08/18 [Rx] Spironolactone [Aldactone] 25 mg PO DAILY #15 tab 06/08/18 [Rx] metFORMIN HCL 1,000 mg PO BID #60 tablet 06/08/18 [Rx] Follow up Appointment(s)/Referral(s): , Cardiology [Other] - 1 Week (Please schedule appointment with your Inspector [employer]) None,Stated [Primary Care Provider] - 06/12/18 9:30 am (Friday Dr. Hernandez) Ambulatory/Diagnostic Orders: Basic Metabolic Panel [LAB.AMB] Time Frame: 3 Days, Location: None Selected Patient Instructions/Handouts: Heart Failure (DC), Heart Healthy Diet (DC) Activity/Diet/Wound Care/Special Instructions: Diet: Heart healthy 2 gram sodium, carb consistent activity as tolerated. Discharge Disposition: HOME SELF-CARE
== END 2018-06-08 14:01 | disposition home or self-care (01) | DRG 291 ==
LOC: EC 05:13 → 3SCARD 05:45
PROVIDERS: ADMIT Family Medicine; ATTEND Family Medicine
DX: I11.0 Hypertensive heart disease with heart failure (principal); G92 Toxic encephalopathy; J98.11 Atelectasis; F05 Delirium due to known physiological condition; I50.23 Acute on chronic systolic (congestive) heart failure; E83.42 Hypomagnesemia; E86.0 Dehydration; E11.9 Type 2 diabetes mellitus without complications; I16.0 Hypertensive urgency; R09.02 Hypoxemia; E03.9 Hypothyroidism, unspecified; I95.1 Orthostatic hypotension; M19.90 Unspecified osteoarthritis, unspecified site; I49.3 Ventricular premature depolarization; D86.9 Sarcoidosis, unspecified; E78.5 Hyperlipidemia, unspecified; Z79.84 Long term (current) use of oral hypoglycemic drugs; Z79.1 Long term (current) use of non-steroidal anti-inflammatories (NSAID); Z79.899 Other long term (current) drug therapy; Z91.14 Patient's other noncompliance with medication regimen
CPT/HCPCS: 36415; 71045; 71046; 80048; 80053; 81003; 83036; 83735; 83880; 84439; 84443; 84484; 85025; 85027; 85610; 85730; 87040; 93005; 93306; 94760; 99285